=== PATIENT | male | born 1980 | race Caucasian/White ===

== ENCOUNTER 2018-08-26 18:16 | Observation (INO) | payer MEDICAID, SELFPAY ==
[2018-08-26 17:45] VITALS: BP 138/90; BP 142/94; PULSE 80; RESP 16; TEMP 36.7; O2SAT 98
[2018-08-26 17:54] VITALS: BMI 27.6
[2018-08-26 17:57] VITALS: BMI 27.7
[2018-08-26 18:03] VITALS: PULSE 89
--- NOTE | 2018-08-26 18:28 | PCM.HP.STD ---
<Kavitha Duncan - Last Filed: 08/26/18 18:59> Problem List (1) Seizure Status: Acute (2) Marijuana abuse Status: Chronic (3) Poor dentition Status: Chronic History of Present Illness Date of Admission: 08/26/18 Chief Complaint: New onset seizure. The patient is a 38 year old M who presents from outside hospital due to new onset seizure. Patient states he was using the restroom which is last thing he remembers. His mom and brother found him on his back actively having a seizure. His brother states he turned him on his side and reports the seizure lasted approximately 10 minutes. He reports patient was unresponsive and had thrashing/jerking movements. Patient reports it feels like he bit his lip. He denies urinary incontinence. He denies history of seizure. Denies new recent medications. Reports marijuana use. Otherwise denies other drug or alcohol use. He has a history of IBS. He also reports he has poor dentition with recurrent oral infections. He is currently undergoing multiple staged extractions. Otherwise denies prior medical history. Past Medical History Past Medical History (Chronic Problems): Chronic Problems Marijuana abuse (Chronic) Poor dentition (Chronic) Allergies acetaminophen [From Vicodin] Adverse Reaction (Verified 08/26/18 17:52) Upset Stomach hydrocodone [From Vicodin] Adverse Reaction (Verified 08/26/18 17:52) Upset Stomach morphine Adverse Reaction (Verified 08/26/18 17:52) Upset Stomach Penicillins Adverse Reaction (Verified 08/26/18 17:52) Upset Stomach tramadol Adverse Reaction (Verified 08/26/18 17:52) Upset Stomach Home Medications: Ambulatory Orders Medication Instructions Recorded NK 08/26/18 Surgical History: - - Tooth extractions/oral surgeries. Psychiatric History: No pertinent psych hx Lives: With Family Smoking Status: Former smoker Alcohol: None Drugs: Marijuana - *Family History Maternal History Items: Hypertension, - - Fibromyalgia Paternal History Items: - - secondary to complications from COPD. Review of Systems Constitutional: Denies: Chills, Fever, Weight Change HEENT: Denies: Head Aches, Sinus Congestion, Sinus Drainage Cardiovascular: Denies: Chest Pain, Palpitations Respiratory: Denies: Cough, Shortness of breath at rest, Sputum production Gastrointestinal: Denies: Abdominal Pain, Nausea, Vomiting Genitourinary: Denies: Dysuria Musculoskeletal: Denies: Joint Pain, Joint Tenderness Skin: Denies: Rash, Wounds Neurological: Reports: Seizures. Denies: Focal weakness, Numbness, Tingling Psychiatric: Denies: Anxiety, Depression, Homicidal Ideations, Suicidal Ideations Hematologic/ Lymphatic: Denies: Easy Bruising, Easy Bleeding VTE Information - Inpt Only VTE Present on Admission: No VTE Mechan Device Prophylaxis: None VTE Pharm Prophylaxis ordered?: No Reason prophylaxis not ordered:: Treatment Not Indicated Patient Problems: Active and Suspected Problems Seizure (Acute) - Physical Exam General: Alert, Oriented x3, Cooperative HEENT: Atraumatic, PERRLA, EOMI, Normocephalic Oral: - - Poor dentition Neck: Supple, No JVD, Negative Carotid Bruits Lungs: Clear to auscultation, Normal air movement Cardiovascular: Regular rate, Regular Rhythm, Normal S1, Normal S2, No murmurs Abdomen: Bowel Sounds Present, Soft, Non Tender, Non-Distended Extremities: No clubbing, No cyanosis, No edema, Capillary Refill Less than 3 Seconds Skin: No rashes, No breakdown Musculoskeletal: No Tenderness to Palpation of Joints or Extremities Neurological: Cranial nerves II-XII grossly intact, Neuro grossly intact Psych/Mental Status: Normal Affect, Appropriate Vital Signs Temp Pulse Resp BP Pulse Ox 98.0 F 89 16 138/90 H 98 08/26/18 17:45 08/26/18 18:03 08/26/18 17:45 08/26/18 17:45 08/26/18 17:45 Oxygen Delivery Method Room Air Weight: 166 lb 7.184 oz Body Mass Index (BMI) 27.6 Intake and Output for Last 24 Hours 08/24/18 08/25/18 08/26/18 23:59 23:59 23:59 Intake Total 240 / 240 Balance 240 / 240 Assessment/Plan All Active Problems Seizure (Acute) 1. New onset seizures-no prior history of seizures. Brain CT at outside facility with no acute process. Chest x-ray unremarkable. Patient complains of rib pain secondary to fall related to seizure. Seizure precautions. Obtain EEG. Consult neurology. 2. Marijuana use-tox screen in outside facility positive for marijuana, negative for other drug use. 3. Poor dentition-recently undergoing multiple extractions and reports frequent dental abscesses/oral infections. 4. IBS-not on regimen. DVT prophylaxis-not indicated, low risk. This patient was seen by RISSA Aviles under the supervision of Dr. Arteaga. <Princess Arteaga - Last Filed: 08/26/18 21:51> History of Present Illness The patient is a 38 year old M [] Past Medical History Allergies acetaminophen [From Vicodin] Adverse Reaction (Verified 08/26/18 17:52) Upset Stomach hydrocodone [From Vicodin] Adverse Reaction (Verified 08/26/18 17:52) Upset Stomach morphine Adverse Reaction (Verified 08/26/18 17:52) Upset Stomach Penicillins Adverse Reaction (Verified 08/26/18 17:52) Upset Stomach tramadol Adverse Reaction (Verified 08/26/18 17:52) Upset Stomach - Physical Exam Vital Signs Temp Pulse Resp BP Pulse Ox 98.0 F 85 16 138/90 H 98 08/26/18 17:45 08/26/18 19:00 08/26/18 17:45 08/26/18 17:45 08/26/18 17:45 Oxygen Delivery Method Room Air Weight: 75.5 kg Body Mass Index (BMI) 27.6 Intake and Output for Last 24 Hours 08/24/18 08/25/18 08/26/18 23:59 23:59 23:59 Intake Total 240 / 240 Balance 240 / 240 Assessment/Plan This patient was seen in conjunction with Kavitha Duncan. I have independently interviewed and examined the patient and reviewed pertinent historical, laboratory, and other data. I have reviewed her note and concur with her documentation CC: Seizure HPI: 38-year-old with past medical history of IBS, who comes in with an episode of seizure. Denies any history of seizures. Patient was reported in the bathroom, mother had some gurgling sounds, and he reportedly fell. When he went to the bathroom, he was having a tonic-clonic activity with foaming the mouth. Patient admits to using only marijuana reportedly for his IBS. PMHX: IBS PSHx: Tooth extraction/oral surgeries FHX: Mother has hypertension, father of COPD SHX: Lives with parents, denies any use of alcohol, smoking, uses marijuana Physical Exam: Vitals: Temperature was 90 8.0F, heart rate 80, blood pressure 142/94, respiratory rate of 16, SPO2 98% on room air. Gen: Comfortable, not pale, not jaundiced CVS:HS I +II, regular, no murmurs RESP: Clinically clear to auscultation, tenderness over the low back GI: BS present and normal, soft, nontender, no palpable organs EXT:No edema JAVA DESIGNER: CN II-XII intact, grossly intact Labs: His admitting blood work was unremarkable, CT scan of the head was unremarkable, urine tox was positive for marijuana. ASSESSMENT: 1. New onset seizures 2. IBS 3. Marijuana use Plan: Admit to PCU, seizure precautions, EEG, neurology consult Code Visit Inpatient E&M: 39939 Init Hosp L3
[2018-08-26 19:00] VITALS: PULSE 85
[2018-08-26] MEDS: Acetaminophen 325 MG Tablet 650 MG PO (19:40)
[2018-08-26] MEDS: 0.9% Normal Saline 1,000 ML 75 ML IV (19:40)
[2018-08-26] MEDS: oxyCODONE 5 MG Tablet PO (19:41)
[2018-08-26 23:00] VITALS: PULSE 79
[2018-08-26 23:30] VITALS: BP 140/67; PULSE 80; RESP 18; TEMP 37.1; O2SAT 97
[2018-08-27] MEDS: oxyCODONE 5 MG Tablet PO ×3 (00:23→15:22)
[2018-08-27 03:00] VITALS: PULSE 81
[2018-08-27 03:40] VITALS: BP 133/74; PULSE 83; RESP 16; TEMP 36.9; O2SAT 97
[2018-08-27 07:02] VITALS: PULSE 75
--- NOTE | 2018-08-27 08:49 | PCM.CONS.GEN ---
Reason for Consult Date of Consultation: 08/27/18 Reason for Consultation: seizure History of Present Illness: The patient is a 38 year old M reports around 8-9am when he awoke, feeling ok, went to the bathroom and awoke surrounded by paramedics, now sore. no prodrome, no nausea or diaphoresis or lightheadedness. healthy, other than ibs, no meds at home. some thc nothing else. hx of seizure in father, however this was an a adult (60s), felt to be due to meds, now due to copd. pt denies head injury. no recent stress but reports sleep deprivation per admit note:The patient is a 38 year old M who presents from outside hospital due to new onset seizure. Patient states he was using the restroom which is last thing he remembers. His mom and brother found him on his back actively having a seizure. His brother states he turned him on his side and reports the seizure lasted approximately 10 minutes. He reports patient was unresponsive and had thrashing/jerking movements. Patient reports it feels like he bit his lip. He denies urinary incontinence. He denies history of seizure. Denies new recent medications. Reports marijuana use. Otherwise denies other drug or alcohol use. He has a history of IBS. He also reports he has poor dentition with recurrent oral infections. He is currently undergoing multiple staged extractions. Otherwise denies prior medical history. Past Medical History Past Medical History (Chronic Problems): Chronic Problems Marijuana abuse (Chronic) Poor dentition (Chronic) Allergies acetaminophen [From Vicodin] Adverse Reaction (Verified 08/26/18 17:52) Upset Stomach hydrocodone [From Vicodin] Adverse Reaction (Verified 08/26/18 17:52) Upset Stomach morphine Adverse Reaction (Verified 08/26/18 17:52) Upset Stomach Penicillins Adverse Reaction (Verified 08/26/18 17:52) Upset Stomach tramadol Adverse Reaction (Verified 08/26/18 17:52) Upset Stomach Home Medications: Ambulatory Orders Medication Instructions Recorded NK 08/26/18 Surgical History: - - Tooth extractions/oral surgeries. Psychiatric History: No pertinent psych hx Lives: With Family Smoking Status: Former smoker Alcohol: None Drugs: Marijuana - *Family History Maternal History Items: Hypertension, - - Fibromyalgia Paternal History Items: - - secondary to complications from COPD. Review of Systems Constitutional: Denies: Chills, Fever, Weight Change HEENT: Denies: Head Aches, Sinus Congestion, Sinus Drainage Cardiovascular: Denies: Chest Pain, Palpitations Respiratory: Denies: Cough, Shortness of breath at rest, Sputum production Gastrointestinal: Denies: Abdominal Pain, Nausea, Vomiting Genitourinary: Denies: Dysuria Musculoskeletal: Denies: Joint Pain, Joint Tenderness Skin: Denies: Rash, Wounds Neurological: Denies: Numbness, Tingling, Focal weakness Psychiatric: Denies: Anxiety, Depression, Homicidal Ideations, Suicidal Ideations Hematologic/ Lymphatic: Denies: Easy Bruising, Easy Bleeding Patient Problems: Active and Suspected Problems Seizure (Acute) - Physical Exam General: Alert, Oriented x3, Cooperative HEENT: Atraumatic, PERRLA, EOMI, Normocephalic Neck: Supple, No JVD, Negative Carotid Bruits Lungs: Clear to auscultation, Normal air movement Cardiovascular: Regular rate, No murmurs Abdomen: Bowel Sounds Present, Soft, Non Tender Extremities: No edema, Capillary Refill Less than 3 Seconds Skin: No rashes, No breakdown Musculoskeletal: No Tenderness to Palpation of Joints or Extremities Neurological: Cranial nerves II-XII grossly intact Psych/Mental Status: Normal Affect, Appropriate Vital Signs Temp Pulse Resp BP Pulse Ox 36.9 C 75 16 133/74 H 97 08/27/18 03:40 08/27/18 07:02 08/27/18 03:40 08/27/18 03:40 08/27/18 03:40 Oxygen Delivery Method Room Air Weight: 75.5 kg Body Mass Index (BMI) 27.6 Intake and Output for Last 24 Hours 08/25/18 08/26/18 08/27/18 23:59 23:59 23:59 Intake Total 733 / 733 718 / 718 Balance 733 / 733 718 / 718 Current Home Med List Medication Instructions Recorded Confirmed Type NK 08/26/18 08/26/18 History Current Medications Generic Name Dose Route Start Last Admin Trade Name Freq PRN Reason Stop Dose Admin Acetaminophen 650 mg 08/26/18 18:16 08/26/18 19:40 Tylenol PO 650 mg Q6H PRN PRN Administration Mild pain 1-3/Temp > 100.7 F Sodium Chloride 1,000 mls @ 75 mls/hr 08/26/18 18:20 08/27/18 08:22 IV 08/27/18 14:19 Not Given .[id number] Ibuprofen 400 mg 08/26/18 19:14 Motrin PO Q6H PRN PRN MILD PAIN (1-3/10) Menthol 1 applic 08/26/18 19:15 Bengay Vanishing Scent TOPICAL 4X/DAY PRN PRN SEVERE PAIN (6-10/10) Oxycodone HCl 5 mg 08/26/18 18:16 08/27/18 08:22 Oxyir PO 5 mg Q4H PRN PRN Administration Moderate Pain (4-6/10) Sodium Chloride 5 - 15 ml 08/26/18 18:10 IV UD PRN SALINE FLUSH Assessment/Plan All Active Problems Seizure (Acute) sz vs syncope, no labs in computer system suspect sz in presence of tongue ecchymosis rec: mri eeg cpk keppra 500mg bid no driving dc if above ok
--- NOTE | 2018-08-27 09:06 | MRI_ITS ---
STUDY: MRI BRAIN WITH AND WITHOUT CONTRAST REASON FOR EXAM: Male, 38 years old. Seizure. TECHNIQUE: Standardized multiplanar fat and water weighted pulse sequences were obtained. 15 IV Dotarem was administered for the contrast portion of the examination. COMPARISON: None. FINDINGS: Normal size of the ventricles and extra-axial spaces for the patient's age. Normal white matter tracts of the supratentorial brain. There is no evidence for recent intracranial ischemia or other cause of cytotoxic edema on diffusion weighted imaging (DWI). Normal T2* images of the brain without demonstrated susceptibility artifact. There is no demonstrated hemosiderin stain. Normal bilateral basal ganglia. Normal thalami. There is no extra-axial fluid accumulation. Normal flow voids within the major intracranial circulation suggesting patency by spin echo criteria. Normal venous enhancement. There is no enhancing intra-axial or extra-axial abnormality. Diminutive right V4 segment is noted on flow void. Normal sella turcica, pituitary gland, infundibular stalk, optic chiasm and hypothalamus. Normal tectal plate and pineal gland. Normal midbrain, itzel and medulla. Normal cerebellum. Normal basal cisterns. Normal bilateral temporal bones. Normal bilateral internal auditory canals. No demonstrated orbital abnormality, within the constraints of a routine brain study. Left frontal paranasal sinus opacity is present. Normal calvarium and skull base. Normal visualized soft tissue structures. Normal visualized upper cervical spine. MRI/Brain W/WO Contrast IMPRESSION: No evidence of acute intracranial bleed, mass or ischemia. Electronically Signed: Angel Urena DO at 12:09 EDT , Service support ,
[2018-08-27 09:40] VITALS: BP 148/95; PULSE 80; RESP 16; TEMP 36.7; O2SAT 97
--- NOTE | 2018-08-27 10:25 | CASEMGMT ---
KAYLA VILLALOBOS assessment: Face to Face with patient for initial transition planning/care coordination assessment. KAYLA VILLALOBOS introduced self and role at [facility], pt voices understanding and consents to assessment at this time. Pt is sitting up in bed in no distress at this time. Pt is A/Ox4 at this time and answers all questions appropriately at this time. Care providers, pharmacy, and demographics verified/updated at this time. PCP: Pt states does not currently have PCP, list of in-network providers in [place] provided to pt at this time. Specialists: Pt states currently no specialists. Preferred Pharmacy: [facility] [place] Insurance: [facility] Prescription Benefit: [facility] Living Will/HPOA: Pt states does not have LW/HPOA and declines info at this time. LNOK: Sofia Roland, mother; Alex Roland, brother Living Arrangements: Pt lives with mother, brother, and niece in 2 story home and states no concerns at home at this time. Pt is independent with ADL's. Transportation: Pt states brother drives and states no transportation concerns at this time. DME/HHC: Pt states no current DME or need for any at this time. Pt states no hx of HHC or SNF. Pt states no concerns with going home at time of discharge. Pt states is currently unemployed. Pt states does not smoke or drink ETOH. Pt states no further concerns/needs at this time. CM to follow for any further discharge planning/needs. Advised pt to ask for CM if any further questions/concerns/needs arise, voices understanding. Pt Goal: Home Plan: [place] KAYLA VILLALOBOS
--- NOTE | 2018-08-27 10:38 | EEG ---
- Electroencephalogram Date of service 08/27/2018 This is an 18 channel electro esophagram performed utilizing International 10-20 electrode placement protocol on this 38-year-old male with a history of new onset year. Background activity is 12 Hz symmetrically in the posterior leads which attenuates with eye-opening. Hyperventilation is performed for 4 minutes with good effort with no lateralizing or epileptiform changes and the post hyperventilatory phase is unremarkable. The patient remained awake throughout the recording with no lateralizing or epileptiform changes. EKG is normal sinus rhythm throughout the recording and photic correlation generates a normal symmetric driving response. Impression: Normal awake electroencephalogram
[2018-08-27] MEDS: levETIRAcetam 500 MG Tablet PO (11:24)
--- NOTE | 2018-08-27 11:58 | PCM.DC ---
- Discharge Diagnoses Current Active Problems: Current Active and Chronic Problems Seizure (Acute) Marijuana abuse (Chronic) Poor dentition (Chronic) You will use the following diet at home:: No restrictions Discharge Activity: May Not Shower - Until follow up with neurology Call your doctor if you observe: Numbness or Tingling, Fainting spells Allergies/Adverse Reactions: Allergies acetaminophen [From Vicodin] Adverse Reaction (Verified 08/26/18 17:52) Upset Stomach hydrocodone [From Vicodin] Adverse Reaction (Verified 08/26/18 17:52) Upset Stomach morphine Adverse Reaction (Verified 08/26/18 17:52) Upset Stomach Penicillins Adverse Reaction (Verified 08/26/18 17:52) Upset Stomach tramadol Adverse Reaction (Verified 08/26/18 17:52) Upset Stomach Medications to take at Discharge levETIRAcetam tablet [Keppra tablet] 500 mg PO BID #60 tablet 08/27/18 The following prescriptions were given: levETIRAcetam tablet [Keppra tablet] 500 mg PO BID #60 tablet Primary Care Physician: [facility] Bonnie Salazar [Primary Care Provider] - Please follow up with your Primary Care Physician in: 1 Week Test Results: Test results from this visit will be discussed in further detail at your follow-up appointment, if applicable. Please Follow Up With: Leonardo Mazariegos MD When: 4-6 Weeks Proposed Discharge Date: 08/27/18
--- NOTE | 2018-08-27 13:25 | PCM.DC.SUM ---
Discharge Date and Diagnosis Date of Admission: 08/26/18 Date of Discharge: 08/27/18 - Primary Discharge Diagnosis Active and Suspected Problems 1. New onset seizures 2. Marijuana use 3. Poor dentition 4. IBS - Secondary Discharge Diagnosis Chronic Problems Marijuana abuse (Chronic) Poor dentition (Chronic) Hospital Course and Treatment Imaging Results: Diagnostic Data Brain MRI 08/27/18 09:06 IMPRESSION: No evidence of acute intracranial bleed, mass or ischemia. Electronically Signed: Angel Urena DO at 12:09 EDT , Service support , Dr. Mazariegos- Neurology Operations: None Procedures: Electroencephalogram Summary of Care Provided: The patient is a 38 year old M admitted 08/26/2018 due to new onset seizure. 1. New onset seizures-no prior history of seizures. Brain CT at outside facility with no acute process. Chest x-ray unremarkable. Patient complains of rib pain secondary to fall related to seizure. EEG normal. MRI of brain with no acute intracranial bleed, mass or ischemia. Neurology consulted. Patient initiated on Keppra 500 mg twice daily. Patient reports he currently does not drive, however reinforced no driving until further follow-up with neurology. Follow-up with Dr. Mazariegos, neurology in 4 to 6 weeks. Follow-up with primary care provider in 1 week. 2. Marijuana use-tox screen in outside facility positive for marijuana, negative for other drug use. 3. Poor dentition-recently undergoing multiple extractions and reports frequent dental abscesses/oral infections. 4. IBS-not on regimen. General: Alert, Oriented x3, Cooperative HEENT: Atraumatic, PERRLA, EOMI, Normocephalic Oral: - - Poor dentition Neck: Supple, No JVD, Negative Carotid Bruits Lungs: Clear to auscultation, Normal air movement Cardiovascular: Regular rate, Regular Rhythm, Normal S1, Normal S2, No murmurs Abdomen: Bowel Sounds Present, Soft, Non Tender, Non-Distended Extremities: No clubbing, No cyanosis, No edema, Capillary Refill Less than 3 Seconds Skin: No rashes, No breakdown Musculoskeletal: No Tenderness to Palpation of Joints or Extremities Neurological: Cranial nerves II-XII grossly intact, Neuro grossly intact Psych/Mental Status: Normal Affect, Appropriate Patient seen and examined prior to discharge. Physical assessment as noted above. Patient is stable for discharge with follow up recommendations as noted above. This patient was seen by RISSA Aviles under the supervision of Dr. Rodgers. - Physical Exam Vital Signs Temp Pulse Resp BP Pulse Ox 98.0 F 80 16 148/95 H 97 08/27/18 09:40 08/27/18 09:40 08/27/18 09:40 08/27/18 09:40 08/27/18 09:40 Oxygen Delivery Method Room Air Weight: 166 lb 7.184 oz Body Mass Index (BMI) 27.6 Intake and Output for Last 24 Hours 08/25/18 08/26/18 08/27/18 23:59 23:59 23:59 Intake Total 733 / 733 1237 / 1237 Balance 733 / 733 1237 / 1237 Discharge Diet: No Restrictions Discharge Activity: May Not Shower - Until follow up with neurology Call your doctor if you observe: Numbness or Tingling, Fainting spells Home Medications: Medications to take at Discharge levETIRAcetam tablet [Keppra tablet] 500 mg PO BID #60 tablet 08/27/18 Following Prescrptions Were Given to Patient: levETIRAcetam tablet [Keppra tablet] 500 mg PO BID #60 tablet Primary Care Physician: Bonnie Ortega [Primary Care Provider] - Please follow up with your Primary Care Physician in: 1 Week Please Follow Up With: Leonardo Mazariegos MD When: 4-6 Weeks Disposition: Home Minutes spent on discharge:: 35 Patient Condition:: Stable Medical Necessity - Tobacco Use Smoking Status: Former smoker Meaningful Use Info Meaningful Use Diagnoses (Choose all that apply): None applicable
[2018-08-27 14:45] VITALS: BP 136/86; PULSE 69; RESP 16; TEMP 36.9; O2SAT 96
== END 2018-08-27 12:00 | disposition home or self-care (01) ==
PROVIDERS: Admitting Provider Internal Medicine; Referring Provider Internal Medicine; Visit Provider Internal Medicine
DX: R56.9 Unspecified convulsions (principal); K58.9 Irritable bowel syndrome, unspecified; F12.10 Cannabis abuse, uncomplicated; Z87.891 Personal history of nicotine dependence
CPT/HCPCS: 70553; 95819; 96360; 96361; 99218; A9575; J7030; J7040; A4216; G0378

== ENCOUNTER 2018-09-07 14:07 | Emergency (ER) | payer MEDICAID, SELFPAY ==
[2018-09-07 14:09] VITALS: BP 109/67; PULSE 90; RESP 16; TEMP 36.7; O2SAT 98; BMI 27.0
--- NOTE | 2018-09-07 14:38 | CT_ITS ---
STUDY: CT CHEST WITHOUT CONTRAST REASON FOR EXAM: Male, 38 years old. RADIATION DOSAGE (If Supplied By Facility): CTDIvol = ( 10.15 ) mGy, DLP = ( 375.41 ) mGycm TECHNIQUE: Transaxial imaging was performed without the administration of intravenous contrast material. Individualized dose optimization techniques were used for this CT. COMPARISON: None. FINDINGS: Both lung field are clear no evidence of consolidation or atelectasis. No pleural effusion or pneumothorax identified. The bony thorax is intact no obvious rib fractures seen. The upper abdomen reveals numerous small renal calculi bilaterally more on the right side. The lower half of the kidneys are included in the study. The spleen and liver are unremarkable. Tiny gallstones noted. CT/Chest without Contrast IMPRESSION: Negative CT scan of the chest no rib fracture. Multiple small renal calculi seen in the visualized portion of both kidneys Tiny gallstones . Electronically Signed: Dalton Carvajal, at 15:53 EDT Tel , Service support ,
--- NOTE | 2018-09-07 16:00 | ED.DCSUM_ITS ---
- ER Visit Summary Date of Service: 09/07/18 Chief Complaint: Back and rib pain History of Present Illness: The patient is a 38 M who states that he was transferred here recently for seizures tonight. States that when he had a seizure he fell backwards striking his back on the bathtub. He is now out of th e narcotics that he was prescribed and is hoping he can get some more. States he had imaging that did not show any breaks. He states that everything was done here. Upon review the chart there is no imaging of the back that was performed here. I was able to use [employer] and he had rib series at [facility] that were negative for fracture. He denies any hemoptysis dyspnea or radicular symptoms. Physical Examination: Afebrile vital signs are stable Gen: Well-nourished well-developed Head: Normocephalic atraumatic Eyes: Perrl EOMI ENT: TMs clear no rhinorrhea moist mucous membranes Neck: Supple no lymphadenopathy no JVD nontender CVS: Regular rate rhythm no murmurs normal S1-S2 Respiratory: No distress clear to auscultation bilaterally chest nontender Abdomen: Soft nontender nondistended normal bowel sounds no masses Back: Patient reports tenderness to the head and lower ribs bilaterally left greater than right. There is no ecchymosis or contusion seen. No deformities. Extremity: Nontender no edema Skin: Normal color no rash Neuro: alert orientated ?3 CN II-XII intact normal strength sensation Psych: Normal affect normal mood Test Results: CT of the chest without contrast does not demonstrate any obvious rib fracture pulmonary contusion hemothorax or other effusion. Emergency Department Course and Treatment: Patient requested pain medication I offered ibuprofen but she declined stating it will not do anything for him. At this point he is almost 2 weeks out from his injury. There is no evidence of fracture. There is no outward signs of trauma other than tenderness to palpation. I did perform an oars check. I believe what is indicated is scheduled anti-inflammatories which was relayed to the patient and he informs me that he is just wasted 2 hours of his life as we are not doing anything for him. Patient will be referred to primary care if he wishes to have follow-up for this. Impression: 1. Back and rib contusion This note was generated with [employer] dictation software. It may contain incorrect words, spelling, and punctuation that were not noted in review of the chart prior to signing ED Disposition - Plan for ED Patient: Disposition: Home or Assisted Living Instructions: CONTUSION, Back Prescriptions: Naproxen [Naprosyn] 500 mg PO BID #20 tab Prescription Printed Referrals: Addi Mauricio Chi, MD [COURTESY STAFF PHYSICIAN] - As Needed (as needed for primary care )
--- NOTE | 2018-09-07 16:12 | ED.RN ---
in to discharge patient. while giving discharge instructions patient returned naproxen prescription and threw discharge instruction in the trash.
[2018-09-07 16:14] VITALS: RESP 18
== END 2018-09-07 16:15 | disposition home or self-care (01) ==
PROVIDERS: Emergency Provider Emergency Medicine
DX: S20.219A Contusion of unspecified front wall of thorax, initial encounter (principal); W01.198A Fall on same level from slipping, tripping and stumbling with subsequent striking against other object, initial encounter; Y93.9 Activity, unspecified; Y92.002 Bathroom of unspecified non-institutional (private) residence as the place of occurrence of the external cause; Y99.9 Unspecified external cause status; Z72.0 Tobacco use; R56.9 Unspecified convulsions
CPT/HCPCS: 71250; 99282

== ENCOUNTER 2019-05-27 11:11 | Emergency (ER) | payer MEDICAID, SELFPAY ==
[2019-05-27 11:13] VITALS: BP 139/79; PULSE 93; RESP 16; TEMP 36.5; O2SAT 97; BMI 28.3
--- NOTE | 2019-05-27 11:34 | ED.DCSUM_ITS ---
- ER Visit Summary Date of Service: 05/27/19 Chief Complaint: Bite History of Present Illness: The patient is a 39 M with a suspected tick bite to his right lumbar region. Noticed yesterday. Unable to remove all foreign bodies. Physical Examination: Superficial skin puncture to right lumbar region. Possible black foreign body noted. Test Results: None indicated Emergency Department Course and Treatment: Area was unroofed. A small piece of black material was removed. There are no other foreign bodies visualized. Patient was treated with a single dose of doxycycline. Treatment Plan: As above Disposition: Discharge Impression: Tick bite This note was generated with [employer] dictation software. It may contain incorrect words, spelling, and punctuation that were not noted in review of the chart prior to signing ED Disposition - Plan for ED Patient: Referrals: Care Physician,No Primary [Primary Care Provider] -
--- NOTE | 2019-05-27 11:36 | ED.DEP ---
ED Disposition - Plan for ED Patient: Instructions: Tick Bites Referrals: Bonnie Miller [NON-STAFF] -
[2019-05-27] MEDS: Doxycycline 100 MG CAPSULE 200 MG PO (11:52)
[2019-05-27] MEDS: Ibuprofen 400 MG Tablet 800 MG PO (11:52)
== END 2019-05-27 12:04 | disposition home or self-care (01) ==
LOC: ED 11:55
PROVIDERS: Emergency Provider Emergency Medicine
DX: S30.860A Insect bite (nonvenomous) of lower back and pelvis, initial encounter (principal); W57.XXXA Bitten or stung by nonvenomous insect and other nonvenomous arthropods, initial encounter
CPT/HCPCS: 99283

== ENCOUNTER 2019-08-02 09:44 | Emergency (ER) | payer MEDICAID, SELFPAY ==
[2019-08-02 09:45] VITALS: BP 163/87; PULSE 101; RESP 18; TEMP 35.2; O2SAT 98; BMI 30.9
--- NOTE | 2019-08-02 10:11 | ED.VISSUMM ---
- ER Visit Summary Date of Service: 08/02/19 Chief Complaint: Seizure History of Present Illness: The patient is a 39 M who presents with seizure that occurred today. Patient states he has a history of seizures and takes Keppra. Patient states he has not missed any doses of his medications. Patient does not remember any of the events of the seizure. Patient does not think the seizure lasted very long. Patient denies biting his tongue. Patient does admit to some urinary and stool incontinence. Patient denies any headaches. Patient denies any recent fevers or chills. Physical Examination: Vital signs are stable. Patient is afebrile. Patient is in no acute distress. Oral mucosa is pink and moist. Neck is supple. Trachea is midline. There is no JVD noted. Heart was regular rate and rhythm. Lungs are clear and equal bilaterally. Abdomen is soft. Bowel sounds are normal. There is no tenderness. There is no rebound or guarding noted. Skin is warm dry. Cranial nerves II through XII are intact. There are no focal motor or sensory deficits noted. Extremities are intact. There is no calf tenderness or edema. Test Results: CBC and comprehensive metabolic profile was within normal limits. Emergency Department Course and Treatment: Patient had no further seizure activity here in the emergency department. Patient was feeling better on reevaluation. Patient was instructed to follow-up with his primary care physician in 5 to 7 days. Patient understood and was agreeable with the plan. All questions were answered. Disposition: Discharge home Impression: Seizure This note was generated with [employer] dictation software. It may contain incorrect words, spelling, and punctuation that were not noted in review of the chart prior to signing ED Disposition - Plan for ED Patient: Disposition: Home or Assisted Living Diagnosis: Seizure Instructions: ED Seizure Recurrent Adult Referrals: Care Physician,No Primary [Primary Care Provider] - 5-7 Days
[2019-08-02 10:47] LABS: Absolute Lymphocyte Count 1.85 X10^3/uL (0.83-4.51); Absolute Neutrophil Count 6.2 X10^3/uL (2.0-7.7); Basophil# 0.09 X10^3/uL; Eosinophil# 0.37 X10^3/uL; Hematocrit 47.8 % (40-54); Hemoglobin 15.8 g/dL (13.0-16.5); Lymphocyte # 1.85 X10^3/ul (4.0); Lymphocyte % 20.1 % (19-41); Mean Corp Hgb Conc 33.1 g/dL (32-36); Mean Corpuscular Hgb 30.3 pg (27.0-32.0); Mean Corpuscular Volume 91.7 fL (80-94); Monocyte# 0.61 X10^3/uL; Monocyte% 6.6 % (0-10); NRBC Flagged by Analyzer 0 % (0-5); Neutrophil # 6.15 X10^3/uL (2.7-7.7); Platelet Count 326 K/mm3 (150-450); RBC Distribution Width CV 13.5 % (11.6-14.6); RBC Distribution Width SD 45.5 fl (35.1-43.9); Red Blood Count 5.21 M/mm3 (4.6-6.2); White Blood Count 9.2 K/mm3 (4.4-11.0)
[2019-08-02 10:50] LABS: ALB/GLOB Ratio 1.1 RATIO (0.9-2.4); AST(SGOT) 24 U/L (15-37); Alanine Aminotransfer ALT/SGPT 40 U/L (16-61); Albumin, Serum 4.2 g/dL (3.2-5.0); Alkaline Phosphatase 66 U/L (45-117); Anion Gap 9 (5-15); BUN 13 mg/dL (7-18); BUN/Creat Ratio 13.1 RATIO (10-20); Chloride 107 mmol/L (98-107); Creatinine, Serum 0.99 mg/dL (0.70-1.30); EST Glomerular Filtration Rate 90 mL/min (>60); Est Glom Filt Rate - Afr Amer 109 mL/min (>60); Estimated Creatinine Clearance 82.22 ml/min; Globulin 3.7 g/dL (2.2-4.2); Glucose 162 mg/dL (74-106); Potassium 3.7 mmol/L (3.5-5.1); Protein, Total 7.9 g/dL (6.4-8.2); Sodium Level 138 mmol/L (136-145)
[2019-08-02 10:55] VITALS: BP 140/94; PULSE 100; RESP 18; O2SAT 95
[2019-08-02 11:37] VITALS: BP 125/84; PULSE 88; RESP 18; O2SAT 97
== END 2019-08-02 11:55 | disposition home or self-care (01) ==
PROVIDERS: Emergency Provider Emergency Medicine
DX: G40.909 Epilepsy, unspecified, not intractable, without status epilepticus (principal); R15.9 Full incontinence of feces; R32 Unspecified urinary incontinence; F12.90 Cannabis use, unspecified, uncomplicated
CPT/HCPCS: 80053; 85025; 99285; A4216